=== PATIENT | female | born 1970 | race Caucasian/White ===

== ENCOUNTER → 2016-12-17 | Outpatient (CLI) | payer BC ==
[2016-12-17 13:13] LABS: BASO % 0.3 %; BASO ABS # 0.02 K/uL (0-0.2); COMPLETE YES; EOS % 1.6 %; HEMATOCRIT 40.5 % (37-47); LYMPH % 27.9 %; LYMPH ABS # 1.73 K/uL (1.2-3.4); MEAN CELL VOLUME 88.4 fL (80-100); MEAN CORPUSCULAR HEMOGLOBIN 30.8 pg (25-34); MEAN CORPUSCULAR HGB CONC 34.8 g/dl (32-36); MEAN PLATELET VOLUME 10.4 fL (7.4-10.4); MONO % 9.7 %; NEUT % 60.5 %; PLATELET COUNT 213 K/uL (130-400); RED BLOOD COUNT 4.58 M/uL (4.2-5.4); WHITE BLOOD COUNT 6.19 K/uL (4.8-10.8)
[2016-12-17 13:48] LABS: BLOOD UREA NITROGEN 12 mg/dl (7-18); BUN/CREATININE RATIO 12.7 (10-20); CALCIUM 8.8 mg/dl (8.5-10.1); CARBON DIOXIDE 27 mmol/L (21-32); CHLORIDE 108 mmol/L (98-107); CREATININE 0.93 mg/dl (0.60-1.20); GLUCOSE 90 mg/dl (70-99); POTASSIUM 3.9 mmol/L (3.5-5.1); SODIUM 139 mmol/L (136-145)
== END | disposition home or self-care (01) ==
LOC: C.LABBC 11:03
PROVIDERS: ATTEND Orthopaedic Surgery
DX: S46.212D Strain of muscle, fascia and tendon of other parts of biceps, left arm, subsequent encounter (principal); X58.XXXD Exposure to other specified factors, subsequent encounter; Z01.812 Encounter for preprocedural laboratory examination

== ENCOUNTER → 2017-01-01 | Day surgery (SDC) | payer BC ==
[2016-12-24 07:39] VITALS: Ht 162.6 cm; Wt 83.2 kg
[~2017-01-01] VITALS: Ht 162.6 cm; Wt 83.2 kg
[~2017-01-01] MED LIST: ATROPINE SULFATE 0.1 MG/ML 5ML SYR IV PRN; BUPIVACAINE/EPINEPHRINE 0.25% 1:200,000 30 ML VIAL ONE; DEXAMETHASONE SOD INJ 4 MG/ML VIAL ONE; EpHEDrine SULFATE INJ 50 MG/ML AMP ONE; FENTANYL CITRATE INJ 50 MCG/1 ML 2 ML VIAL ONE; HYDR-5688 PO; HYDROCODONE/ACETAMOPHEN 5/325MG TAB PO PRN; KETO10TA PO; KETOROLAC TROMETHAMINE 30 MG/ML VIAL IV. PRN; KETOROLAC TROMETHAMINE 30 MG/ML VIAL ONE; LACTATED RINGER'S 1000ML 1,000 ML IV SCH; LIDOCAINE HCL 2% 2 ML VIAL (20MG/ML) ONE; MIDAZOLAM HCL 1 MG/ML 2ML VIAL ONE; MINO100C22 PO; ONDANSETRON INJ 2 MG/ML 2 ML VIAL IV PRN; ONDANSETRON INJ 2 MG/ML 2 ML VIAL ONE; PROPOFOL IV EMULSION 10 MG/ML 20 ML VIAL IV ONE; SODIUM CHLORIDE 0.9% 1000ML 1,000 ML IV SCH
--- NOTE | 2017-01-01 06:58 | History & Physical Bridge - [place] ---
H&P Re-Evaluation Bridge Note: I have examined the patient, reviewed the History & Physical and in the interval since the performance of the History & Physical I have noted the following changes of clinical significance: No changes noted
[2017-01-01] MEDS: CEFAZOLIN 2000MG IV PUSH 10 ML IV SCH ×2 (06:59→07:07)
--- NOTE | 2017-01-01 07:53 | Discharge Instructions-SurgCtr ---
Discharge Instructions Date of Service Jan 01, 2017. Visit Reason for Visit: Left Upper Limb Strain Of Muscle, Bicep Tendon Rup Discharge Discharge Diagnosis / Problem: SAME ABOVE Discharge Goals Goal(s): Decrease discomfort, Improve function Activity Recommendations Activity Limitations: as noted below Lifting Limitations: until after follow-up appointment Exercise/Sports Limitations: until after follow-up appointment Anesthesia . Post Anesthesia Instructions: If you have had General Anesthesia or IV Sedation: * Do not drive today. * Resume driving when surgeon permits. * Do not make important decisions or sign legal documents today. * Call surgeon for: 1. Temperature elevations greater than 101 degrees F. 2. Uncontrollable pain. 3. Excessive bleeding. 4. Persistent nausea and vomiting. 5. Medication intolerance (nausea, vomiting or rash). * For nausea and vomiting use only clear liquids such as: tea, soda, bouillon until nausea subsides, then gradually increase diet as tolerated. * If you have any concerns or questions, call your surgeon's office. If physician is unavailable and it is an emergency, call 911 or go to the nearest emergency room. . Instructions / Follow-Up Instructions / Follow-Up MEDICATIONS: * Resume previous medications unless instructed otherwise by your surgeon. * Always take pain medication on a full stomach or with food to avoid upset stomach. * Do not drink alcohol or drive while taking narcotics. * Ibuprofen or Tylenol may be taken if narcotic not needed. SPECIAL CARE INSTRUCTIONS: __ None _X_ Keep extremity elevated and iced x 48 hours; apply ice 20-30 minutes 8-10 times/day. May remove at night. _X_ Sling (WEAR FOR COMFORT) __24 hrs/day __ Remove at night __ Shoulder Immobilizer __ 24 hrs/day __ Remove at night _X_ Dressing __ Maintain until seen in office, may shower with plastic over site _X_ Remove dressings in 5 DAYS. MAY SHOWER SOONER IF COVERED WITH PLASTIC BAG _X_ Cover incisions with band-aids after showering __ Do not remove steri-strips Call physician if chills or temperature rises above 102 degrees or pain unrelieved by prescribed pain medications at . . Diet Recommendations Home Diet: no limitations Procedures Procedures Performed: Left Distal Bicep Tendon Repair Pending Studies Studies pending at discharge: no Work Instructions Return To Work: after follow-up (OR SOONER WHEN PAIN IS TOLERATED. NO LIFTING WITH LEFT ARM ) Lifting Limitations: NO LIFTING WITH LEFT ARM Medical Emergencies . Who to Call and When: Medical Emergencies: If at any time you feel your situation is an emergency, please call 911 immediately. . Non-Emergent Contact Non-Emergency issues call your: Primary Care Provider Call Non-Emergent contact if: you have a fever, temperature is above 101.5 . . "Provider Documentation" section prepared by David Naqvi. .
--- NOTE | 2017-01-01 08:07 | OPERATIVE REPORT ---
DATE OF OPERATION: 01/01/2017 PREOPERATIVE DIAGNOSIS: High-grade partial left distal biceps tendon rupture. POSTOPERATIVE DIAGNOSIS: High-grade partial left distal biceps tendon rupture. PROCEDURE PERFORMED: Left distal biceps tenodesis. SURGEON: Saurabh Love DO. [employer] WORKER: David Naqvi PA-C, whose assistance was necessary for positioning of the arm and helping with instrumentation. ANESTHESIA: General. COMPLICATIONS: None. CONDITION: Stable to PACU. INDICATIONS: Alethea is a pleasant 46-year-old female, who works as an occupational therapist. Several months ago, she injured her left biceps. She had a lot of pain in the antecubital fossa. I diagnosed her clinically with possible biceps strain. After months of conservative treatment, I got an MRI. The MRI showed a high-grade partial-thickness distal biceps tendon rupture. After a long discussion in the office, we elected to proceed with reattachment. DESCRIPTION OF PROCEDURE: On 01/01/2017, she arrived at [facility] for the above procedure. She was seen in the preoperative holding area and the operative extremity was identified and signed. She was given a preoperative antibiotic, taken back to the operating room, laid on the table in supine position and put under general anesthesia. The left elbow was then prepped and draped in a sterile fashion. Time-out was done and the patient and operative extremity was properly identified. A small incision was made between the flexor pronator mass and the extensor carpi muscles. Dissection was taken down through the fascia with care not to disrupt the neurovascular structures. The distal biceps tendon was visualized. About 85%-90% of the tendon had been torn off the bone and the tendon near the attachment was rather poor quality. The remainder of the tendon was released with a [place]ledo elevator. The tendon was then whipstitched with an Arthrex FiberLoop suture. The tendon measured to be a size 7. An 8 mm hole was drilled in the bicipital groove, and the biceps tendon was tenodesed with an Arthrex biceps button that was passed through the posterior cortex and flipped in a tension slide technique to deliver the tendon into the 8 mm hole. This gave good fixation. A single 7 x 10 mm biointerference screw was then placed. The tails of the suture were then tied around the screw. I was able to get full range of motion of the elbow and the distal biceps tendon was well fixed. The wound was then irrigated and injected with Marcaine with epinephrine. Tourniquet was deflated. Hemostasis was controlled. The incision was then closed with 3-0 Vicryl suture and 4-0 nylon. She was placed in a soft dressing, extubated, and taken to the postanesthesia care unit in stable condition. She tolerated the procedure well. I attest to the content of the Intraoperative Record and any orders documented therein. Any exception s are noted below.
[2017-01-01] MEDS: FENTANYL CITRATE INJ 50 MCG/1 ML 2 ML VIAL IV PRN ×3 (08:11→08:30)
[2017-01-01 08:53] VITALS: TEMP 36.8
[2017-01-01 09:26] VITALS: BP 107/70; PULSE 73; O2SAT 99
--- NOTE | 2017-01-01 09:32 | Anesthesia Progress Nt - [facility] ---
Anesthesia Post Op Note Date & Time Jan 01, 2017 at 09:32 Vital Signs Pain Intensity: 4.0 Vital Signs Past 12 Hours Date Time Temp Pulse Resp B/P (MAP) Pulse Ox O2 Delivery O2 Flow Rate FiO2 01/01/17 09:26 73 107/70 (82) 99 Room Air 01/01/17 08:53 36.8 76 111/75 (87) 98 Room Air 01/01/17 08:43 36.8 73 12 105/68 98 Room Air 01/01/17 08:42 64 16 01/01/17 08:42 66 16 96 01/01/17 08:41 105/68 01/01/17 08:37 65 13 97 01/01/17 08:37 66 13 01/01/17 08:36 93/65 01/01/17 08:32 88 21 99 01/01/17 08:32 88 21 01/01/17 08:31 106/71 01/01/17 08:27 63 16 01/01/17 08:27 64 16 100 01/01/17 08:26 110/72 01/01/17 08:25 37.2 57 16 110/72 100 Diffusion Mask 6 01/01/17 08:22 70 21 100 01/01/17 08:22 68 21 01/01/17 08:21 116/75 01/01/17 08:20 60 20 01/01/17 08:20 59 20 100 01/01/17 08:16 127/73 01/01/17 08:15 68 15 100 01/01/17 08:15 69 15 01/01/17 08:11 115/76 01/01/17 08:10 74 20 100 01/01/17 08:10 75 20 01/01/17 08:06 112/68 01/01/17 08:05 83 20 01/01/17 08:05 85 20 100 01/01/17 08:01 109/67 01/01/17 08:00 88 21 01/01/17 08:00 87 21 100 01/01/17 07:56 118/71 01/01/17 07:55 36.3 86 16 118/71 100 Diffusion Mask 6 01/01/17 06:20 36.5 77 16 125/87 (100) 100 Room Air Notes Mental Status: alert / awake / arousable, participated in evaluation Pt Amnestic to Procedure: Yes Nausea / Vomiting: adequately controlled Pain: adequately controlled Airway Patency, RR, SpO2: stable & adequate BP & HR: stable & adequate Hydration State: stable & adequate Anesthetic Complications: no major complications apparent
--- NOTE | 2017-01-01 18:39 | [facility] Post Operative Brief Note ---
Immediate Operative Summary Operative Date Jan 01, 2017. Pre-Operative Diagnosis Left Distal Bicep Tendon Rupture Post-Operative Diagnosis Same Procedure(s) Performed Left Distal Bicep Tendon Repair Surgeon Dr. Love Computer Publisher Surgeon(s) Katja Naqvi PA-C Estimated Blood Loss 5 mL Findings as above Specimens None Complication(s) None Disposition Recovery Room / PACU
== END | disposition home or self-care (01) ==
LOC: X.SURG 06:04
PROVIDERS: ATTEND Orthopaedic Surgery
DX: S46.212A Strain of muscle, fascia and tendon of other parts of biceps, left arm, initial encounter (principal); X58.XXXA Exposure to other specified factors, initial encounter